=== PATIENT | female | born 1960 | race American Indian/Alaskan Native ===

== ENCOUNTER 2017-05-25 17:28 | Emergency (ER) | payer BC ==
[2017-05-25 17:28] VITALS: BMI 32.9
[2017-05-25 17:53] VITALS: TEMP 99.3
[2017-05-25 18:28] LABS: BASO # 0.04 K/mm3 (0.0-2.0); BASO % 0.6 % (0.0-3.0); EOS # 0.5 (0.0-0.7); EOS % 6.6 % (1.5-5.0); GRAN # 3.79 (1.4-6.5); GRAN % 53.9 % (50.0-68.0); HEMATOCRIT 29.6 % (36.0-48.0); LYMPH % 28.9 % (22.0-35.0); MEAN CELL VOLUME 90.5 fl (80.0-105.0); MEAN CORPUSCULAR HEMOGLOBIN 31.2 pg (25.0-35.0); MEAN CORPUSCULAR HGB CONC 34.5 g/dl (31.0-37.0); MEAN PLATELET VOLUME 10.5 fl (7.0-11.0); MONO # 0.7 (0.1-0.6); RED CELL DISTRIBUTION WIDTH 16.6 % (11.5-14.5)
[2017-05-25 18:28] LABS: PH,URINE 6.5 (4.7-8.0); URINE BILIRUBIN MODERATE (NEGATIVE); URINE BLOOD LARGE (NEGATIVE); URINE GLUCOSE (UA) NEGATIVE (NEGATIVE); URINE KETONE 15 mg/dL (NEGATIVE); URINE LEUKOCYTE ESTERASE TRACE Leu/uL (NEGATIVE); URINE PROTEIN 100 mg/dL (<30 mg/dL)
[2017-05-25 18:32] LABS: URINE APPEARANCE CLOUDY (CLEAR); URINE COLOR RED (YELLOW)
--- NOTE | 2017-05-25 18:36 | ED PDOC ---
"Arrival/HPI - General Chief Complaint: Female Genitourinary Time Seen by Provider: 05/25/17 18:02 Historian: Patient - History of Present Illness Narrative History of Present Illness (Text): 05/25/17 18:25 A 56 year old female presents to the emergency department complaining of blood in her urine for the past 5 days. Patient was seen by her PMD and had a urinalysis and ultrasound done. Patient was called today and informed her urine was positive with nitrates and leukocytes, and ultrasound showed right sided hydronephrosis. She reports recently eating a lot of beets and believed that's why her urine was red in color. Patient notes intermittent episodes of paraspinal back discomfort but denies any fever, chills, nausea, vomiting, abdominal pain, dysuria, frequency, vaginal bleeding, vaginal discharge, chest pain, shortness of breath, weakness, numbness, or any other complaints. 05/25/17 22:35 Time/Duration: Other (5 days) Symptom Course: Unchanged Quality: Other Context: Home Past Medical History - Provider Review Nursing Documentation Reviewed: Yes - Reproductive Menopause: Yes - Cardiac Hx Hypertension: Yes - Pulmonary Hx Asthma: Yes - Endocrine/Metabolic Hx Diabetes Mellitus Type 2: Yes - Psychiatric Hx Depression: No Hx Substance Use: No - Past Surgical History Past Surgical History: No Previous - Surgical History Hx Section: Yes - Suicidal Assessment Feels Threatened In Home Enviroment: No Family/Social History - Physician Review Nursing Documentation Reviewed: Yes Family/Social History: No Known Family HX Smoking Status: Never Smoked Hx Alcohol Use: Yes Hx Substance Use: No Hx Substance Use Treatment: No Allergies/Home Meds Allergies/Adverse Reactions: Allergies No Known Allergies Allergy (Verified 08/29/12 18:07) Home Medications: Home Meds Medication Instructions Recorded Confirmed Hydrochlorothiazide/Valsarta 1 tab PO DAILY 08/29/12 05/25/17 [Diovan Hct 12.5 mg-80 mg] Levothyroxine [Synthroid] 0.075 mg PO DAILY 08/29/12 05/25/17 Metformin Hydrochloride/Kirsty 1 tab PO BID 08/29/12 05/25/17 [Janumet 500 mg-50 mg] Review of Systems - Physician Review All systems were reviewed & negative as marked: Yes - Review of Systems Constitutional: absent: Fevers, Night Sweats Respiratory: absent: SOB Cardiovascular: absent: Chest Pain Gastrointestinal: absent: Abdominal Pain, Nausea, Vomiting Genitourinary Female: Hematuria. absent: Dysuria, Frequency Musculoskeletal: Back Pain Physical Exam Vital Signs Reviewed: Yes Vital Signs Temp Pulse Resp BP Pulse Ox 05/25/17 21:24 86 16 131/70 100 05/25/17 17:57 99.3 F 88 18 136/80 99 05/25/17 17:51 99.3 F 88 19 136/80 100 Temperature: Afebrile Blood Pressure: Normal Pulse: Regular Respiratory Rate: Normal Appearance: Positive for: Well-Appearing, Non-Toxic, Comfortable Pain Distress: None Mental Status: Positive for: Alert and Oriented X 3 - Systems Exam Head: Present: Atraumatic, Normocephalic Pupils: Present: PERRL Extroacular Muscles: Present: EOMI Conjunctiva: Present: Normal Mouth: Present: Moist Mucous Membranes Neck: Present: Normal Range of Motion Respiratory/Chest: Present: Clear to Auscultation, Good Air Exchange. No: Respiratory Distress, Accessory Muscle Use Cardiovascular: Present: Regular Rate and Rhythm, Normal S1, S2. No: Murmurs Abdomen: Present: Normal Bowel Sounds. No: Tenderness, Distention, Peritoneal Signs Back: Present: Normal Inspection Upper Extremity: Present: Normal Inspection. No: Cyanosis, Edema Lower Extremity: Present: Normal Inspection. No: Edema Neurological: Present: GCS=15, CN II-XII Intact, Speech Normal Skin: Present: Warm, Dry, Normal Color. No: Rashes Psychiatric: Present: Alert, Oriented x 3, Normal Insight, Normal Concentration Medical Decision Making ED Course and Treatment: 05/25/17 18:25 Impression: A 56 year old female with heamturia. Patient notes paraspinal back discomfort. Plan is to evaluate for renal stones. Plan: -- Abdomen and pelvis CT -- Labs -- Urine culture and Urinalysis -- Toradol -- Reassess and disposition Progress Notes: 05/25/17 20:52 Labs significant for anemia. UA shows hematuria, with leukocytes and nitrates. FINDINGS: Lower thorax: Heart size is normal. There is a small hiatal hernia. There is atelectasis and scarring at the lung bases. There is a small defect in the posterior left hemidiaphragm with herniation of retroperitoneal fat. ABDOMEN: Liver: There is fatty infiltration of the liver. Gallbladder and bile ducts: unremarkable Pancreas: Pancreas is mildly atrophic. Spleen: unremarkable Adrenals: The adrenals are mildly nodular. Kidneys and ureters: There is hyperdense material in right lower pole calyces, blood versus calcium.There is no pelvocaliectasis or ureterectasis. There are left lower pelvic cysts.There is no pelvocaliectasis or ureterectasis. ION DILLON | Final Radiology Report CONFIDENTIALITY STATEMENT This report is intended only for use by the referring physician, and only in accordance with law. If you received this in error, call [phone]. Page 2 of 2 Stomach and bowel: Stomach is distended with ingested material. Rotation is normal. There is no small bowel obstruction. Ileocecal region is unremarkable.Colon is incompletely distended which limits evaluation. Appendix: See stomach and bowel PELVIS: Bladder: unremarkable Reproductive: Uterus and adnexal structures are unremarkable. ABDOMEN and PELVIS: Intraperitoneal space: There is no free air or free fluid. Bones/joints: There are degenerative changes in the osseus structures. Soft tissues: There is a small fat containing paraumbilical ventral hernia. Vasculature: Aorta and inferior vena cava are unremarkable. There are multiple serpiginous and nodular opacities in the upper abdomen and gastric region suggesting collateral vessels/varices Lymph nodes: There is no para-aortic adenopathy IMPRESSION: No obstructing renal or ureteral stones or hydronephrosis; hyperdense material in a right lower pole renal calyx blood versus milk of calcium; fatty liver; possible varices Additional findings as described above. Patient is tolerating po. She has normal wbc. She was given copy of abnormal CT and was instructed to follow-up with urology and PMD. She was given course of antibiotics for uti, pending ucx. - Lab Interpretations Lab Results: 05/25/17 18:15 05/25/17 18:15 Lab Results 05/25/17 18:19: Urine Color Red, Urine Appearance Cloudy, Urine pH 6.5, Ur Specific [place] 1.025, Urine Protein 100 H, Urine Glucose (UA) Negative, Urine Ketones 15 H, Urine Blood Large H, Urine Nitrate Positive H, Urine Bilirubin Moderate H, Urine Urobilinogen 2.0 H, Ur Leukocyte Esterase Trace H, Urine RBC Tntc, Urine WBC 2 - 5, Ur Epithelial Cells 4 - 5, Urine Bacteria Mod 05/25/17 18:15: Sodium 145, Potassium 4.4, Chloride 108 H, Carbon Dioxide 22, Anion Gap 19, BUN 13, Creatinine 1.1, Est GFR ( Amer) > 60, Est GFR (Non- Af Amer) 52, Random Glucose 113 H, Calcium 10.3, Total Bilirubin 2.0 H, AST 40 H , ALT 28, Alkaline Phosphatase 109, Total Protein 9.2 H, Albumin 4.3, Globulin 4.9, Albumin/Globulin Ratio 0.9 L, Lipase 14 L 05/25/17 18:15: WBC 7.0, RBC 3.27 L, Hgb 10.2 L, Hct 29.6 L, MCV 90.5, MCH 31.2 , MCHC 34.5, RDW 16.6 H, Plt Count 107 L, MPV 10.5, Gran % 53.9, Lymph % (Auto) 28.9, Dale % (Auto) 10.0 H, Eos % (Auto) 6.6 H, Baso % (Auto) 0.6, Gran # 3.79, Lymph # 2.0, Dale # 0.7 H, Eos # 0.5, Baso # 0.04 I have reviewed the lab results: Yes - RAD Interpretation Radiology Orders: 05/25/17 18:02 ABD & PELVIS W/O PO OR IV CONT [CT] Stat - Medication Orders Current Medication Orders: Discontinued Medications Cephalexin Monohydrate (Keflex) 500 mg PO STAT STA PRN Reason: Protocol Stop: 05/25/17 20:55 Last Admin: 05/25/17 21:22 Dose: 500 mg Ketorolac Tromethamine (Toradol) 30 mg IVP STAT STA Stop: 05/25/17 18:05 Last Admin: 05/25/17 18:19 Dose: 30 mg MAR Pain Assessment Document 05/25/17 18:19 HI (Rec: 05/25/17 18:19 HI [facility] [id number]) Pain Reassessment Is this a pain reassessment? No Sleep Is patient sleeping during reassessment? No Presence of Pain Presence of Pain Yes Pain Scale Used Pain Scale Used Numeric Location Pain Location Body Site Abdomen IVP Administration Document 05/25/17 18:19 HI (Rec: 05/25/17 18:19 [id number]) Charges for Administration # of IVP Administrations 1 Re-Assess: RICK Pain Assessment Document 05/25/17 19:19 SD (Rec: 05/25/17 21:22 [id number]) Pain Reassessment Is this a pain reassessment? Yes Sleep Is patient sleeping during reassessment? No Presence of Pain Presence of Pain No - Scribe Statement The provider has reviewed the documentation as recorded by the Scribe Jackelin Sandoval Provider Scribe Attestation: All medical record entries made by the Scribe were at my direction and personally dictated by me. I have reviewed the chart and agree that the record accurately reflects my personal performance of the history, physical exam, medical decision making, and the department course for this patient. I have also personally directed, reviewed, and agree with the discharge instructions and disposition. Disposition/Present on Arrival - Present on Arrival Any Indicators Present on Arrival: No History of DVT/PE: No History of Uncontrolled Diabetes: No Urinary Catheter: No History of Decub. Ulcer: No History Surgical Site Infection Following: None - Disposition Have Diagnosis and Disposition been Completed?: Yes Diagnosis: Hematuria, UTI (urinary tract infection), Anemia Disposition: HOME/ ROUTINE Disposition Time: 20:53 Patient Plan: Discharge Condition: GOOD Discharge Instructions (ExitCare): Urinary Tract Infection in Women (ED), Acute Hematuria (ED) Additional Instructions: Follow-up with urology within 1 week. Return to ED if condition worsens. Follow-up with PMD within 2 days. Take full course of antibiotics. Prescriptions: Cephalexin [Keflex] 500 mg PO QID #40 capsule Referrals: Cheryl Parnell DO [Primary Care Provider] - Follow up with primary Balaji Lewis MD [Staff Provider] - Follow up with primary Forms: [employer] ([employer])"
[2017-05-25 18:41] LABS: ALKALINE PHOSPHATASE 109 U/L (38-126); ALT/SGPT 28 U/L (7-56); AST/SGOT 40 U/L (14-36); BLOOD UREA NITROGEN 13 mg/dL (7-21); CALCIUM 10.3 mg/dL (8.4-10.5); CARBON DIOXIDE 22 mmol/L (21-33); CHLORIDE 108 mmol/L (98-107); GFR AFRICAN-AMERICAN > 60; GLUCOSE,RANDOM 113 mg/dL (70-110); LIPASE 14 U/L (23-300); POTASSIUM 4.4 mmol/L (3.6-5.0); SODIUM 145 mmol/L (132-148); TOTAL PROTEIN 9.2 g/dL (5.8-8.3)
[2017-05-25 18:45] LABS: URINE BACTERIA MOD (NEG); URINE RBC TNTC /hpf (0-2)
[2017-05-25 18:57] LABS: ALB/GLOB RATIO 0.9 (1.1-1.8)
--- NOTE | 2017-05-25 20:46 | CT ---
EXAM: CT Abdomen and Pelvis Without Intravenous Contrast EXAM DATE/TIME: 05/25/2017 6:02 PM CLINICAL HISTORY: 56 years old, female; Pain; Abdominal pain; Other: C/O flank and back pain (bilat); Prior surgery; Surgery date: 6+ months; Surgery type: HX 2 c-sections; Additional info: Flank pain TECHNIQUE: Axial computed tomography images of the abdomen and pelvis without intravenous contrast. All CT scans at this facility use one or more dose reduction techniques, viz.: automated exposure control; ma/kV adjustment per patient size (including targeted exams where dose is matched to indication; i.e. head); or iterative reconstruction technique. Coronal and sagittal reformatted images were created and reviewed. COMPARISON: There are no prior studies for comparison. FINDINGS: Lower thorax: Heart size is normal. There is a small hiatal hernia. There is atelectasis and scarring at the lung bases. There is a small defect in the posterior left hemidiaphragm with herniation of retroperitoneal fat. ABDOMEN: Liver: There is fatty infiltration of the liver. Gallbladder and bile ducts: unremarkable Pancreas: Pancreas is mildly atrophic. Spleen: unremarkable Adrenals: The adrenals are mildly nodular. Kidneys and ureters: There is hyperdense material in right lower pole calyces, blood versus calcium.There is no pelvocaliectasis or ureterectasis. There are left lower pelvic cysts.There is no pelvocaliectasis or ureterectasis. Stomach and bowel: Stomach is distended with ingested material. Rotation is normal. There is no small bowel obstruction. Ileocecal region is unremarkable.Colon is incompletely distended which limits evaluation. Appendix: See stomach and bowel PELVIS: Bladder: unremarkable Reproductive: Uterus and adnexal structures are unremarkable. ABDOMEN and PELVIS: Intraperitoneal space: There is no free air or free fluid. Bones/joints: There are degenerative changes in the osseus structures. Soft tissues: There is a small fat containing paraumbilical ventral hernia. Vasculature: Aorta and inferior vena cava are unremarkable. There are multiple serpiginous and nodular opacities in the upper abdomen and gastric region suggesting collateral vessels/varices Lymph nodes: There is no para-aortic adenopathy IMPRESSION: No obstructing renal or ureteral stones or hydronephrosis; hyperdense material in a right lower pole renal calyx blood versus milk of calcium; fatty liver; possible varices Additional findings as described above.
[2017-05-25 21:26] VITALS: BP 131/70; PULSE 86; RESP 16; O2SAT 100
== END 2017-05-25 21:26 | disposition home or self-care (01) ==
LOC: ED 17:28
DX: N39.0 Urinary tract infection, site not specified (principal); D64.9 Anemia, unspecified; R31.9 Hematuria, unspecified; E11.9 Type 2 diabetes mellitus without complications; I10 Essential (primary) hypertension
CPT/HCPCS: 74176; 80053; 81001; 83690; 85025; 87086; 96374; 99284; J1885